=== PATIENT | male | born 1955 | race African-American/Black ===

== ENCOUNTER 2020-03-16 07:06 | Inpatient (IN) | payer MEDICAID ==
[~2020-03-16] VITALS: Ht 165.1 cm; Wt 81.6 kg
[2020-03-16] MEDS ORDERED: LEVETIRACETAM 1000MG PREMIX 100 ML IV ONE (08:15)
[2020-03-16 08:25] LABS: BASOPHILS % 0.6 % (0.0-2.0); EOSINOPHILS % 1.8 % (0.0-5.0); HEMATOCRIT. 41.7 % (42.0-52.0); HEMOGLOBIN. 13.1 g/dL (14.0-18.0); LYMPHOCYTES % 31.9 % (20.0-50.0); MEAN CORPUSCULAR HEMOGLOBIN 29.9 pg (28.0-32.0); MEAN CORPUSCULAR VOLUME 94.7 fL (80.0-94.0); MEAN PLATELET VOLUME 8.7 fl (7.4-10.4); MONOCYTES % 8.8 % (2.0-8.0); NEUTROPHILS % 56.9 % (40.0-76.0); PLATELET 212 x1000/uL (130-400); RED CELL DISTRIBUTION WIDTH 16.5 % (11.6-14.6)
[2020-03-16 08:36] LABS: CHLORIDE 101 mEq/L (98-107); INR 1.2; PROTHROMBIN TIME 12.3 sec (9.6-11.0)
[2020-03-16 08:40] LABS: ETHANOL BLOOD < 10 mg/dL
[2020-03-16 08:43] LABS: LDL CHOLESTEROL 108 mg/dL (5-100)
[2020-03-16 08:52] LABS: CLARITY URINE CLOUDY (CLEAR); COLOR URINE DARK YELLOW (YELLOW); KETONES URINE NEGATIVE (NEGATIVE); LEUKOCYTE ESTERASE URINE NEGATIVE (NEGATIVE); NITRITE URINE NEGATIVE (NEGATIVE); OCCULT BLOOD URINE 2+ (NEGATIVE); PROTEIN URINE 3+ (NEGATIVE); SPECIFIC GRAVITY URINE 1.018 (1.005-1.030)
[2020-03-16 10:10] LABS: *AMPHETAMINES SCREEN URINE NEGATIVE (NEGATIVE); *BARBITURATES SCREEN URINE NEGATIVE (NEGATIVE); *BENZODIAZEPINES SCREEN URINE PRESUMTIVE POSITIVE (NEGATIVE); *COCAINE SCREEN URINE NEGATIVE (NEGATIVE)
[2020-03-16 10:11] LABS: CANNABINOID URINE SCREEN PRESUMTIVE POSITIVE (NEGATIVE); METHADONE URINE SCREEN NEGATIVE (NEGATIVE); OPIATES URINE SCREEN NEGATIVE (NEGATIVE); PHENCYCLIDINE URINE SCREEN NEGATIVE (NEGATIVE)
[2020-03-16] MEDS ORDERED: KETOROLAC 15MG/ML VIAL IV PRN (12:15)
[2020-03-16] MEDS ORDERED: ENOXAPARIN 40MG/0.4ML SYR SUBCUT SCH (12:15)
[2020-03-16] MEDS ORDERED: ACETAMINOPHEN 325MG TABLET PO PRN ×2 (12:15)
[2020-03-16] MEDS ORDERED: IPRATROPIUM/ALBUTEROL 0.5-3(2.5)MG/3ML NEB NEB PRN (12:15)
[2020-03-16] MEDS ORDERED: NA PHOS,M-B/NA PHOS,DI-BA ENEMA 118ML PR PRN (12:15)
[2020-03-16] MEDS ORDERED: ZOLPIDEM TARTRATE 5MG TABLET PO PRN (12:15)
[2020-03-16] MEDS ORDERED: DOCUSATE SODIUM 100MG CAPSULE PO PRN (12:15)
[2020-03-16] MEDS ORDERED: MAGNESIUM/ALUMINUM HYDROXIDE/SIMETHICONE 30ML UDC PO PRN (12:15)
[2020-03-16] MEDS ORDERED: LORAZEPAM 2MG/ML CPJ IV PRN (12:15)
[2020-03-16] MEDS ORDERED: GUAIFENESIN 200MG/10ML SUGAR FREE UDC PO PRN (12:15)
[2020-03-16] MEDS ORDERED: ONDANSETRON HCL 4MG/2ML INJ IV PRN (12:15)
[2020-03-16] MEDS ORDERED: NITROGLYCERIN 0.4MG TABLET SL SL PRN (12:15)
[2020-03-16 13:03] LABS: FOLIC ACID (FOLATE) SERUM 14.5 ng/mL (>5.38)
[2020-03-16] MEDS ORDERED: DEXTROSE 50% WATER 50ML SYRINGE IV PRN (13:45)
[2020-03-16 16:00] VITALS: BP 130/105
[2020-03-16 16:22] LABS: CREATINE KINASE 314 IU/L (39-308)
[2020-03-16] MEDS: INSULIN LISPRO 100 UNITS/ML SUBCUT SCH ×2 (17:15→21:00)
[2020-03-16] MEDS: BLOOD SUGAR DIAGNOSTIC STRIP TEST SCH ×2 (17:23→21:00)
[2020-03-16] MEDS ORDERED: LISI-186 PO (17:36)
[2020-03-16] MEDS ORDERED: FURO80TA87 PO (17:36)
[2020-03-16] MEDS ORDERED: METO100T9 PO (17:36)
[2020-03-16] MEDS ORDERED: METO10TA8 PO (17:36)
[2020-03-16] MEDS ORDERED: RIVA10TA PO (17:36)
[2020-03-16] MEDS: ENOXAPARIN 100MG/ML SYR SUBCUT SCH (18:16)
[2020-03-16 18:32] VITALS: BP 137/105
[2020-03-16 20:00] VITALS: BP 120/96
[2020-03-16] MEDS ORDERED: ENOXAPARIN 30MG/0.3ML SYR SUBCUT SCH (21:00)
[2020-03-16] MEDS: LEVETIRACETAM 500MG TABLET PO SCH (22:27)
[2020-03-16] MEDS: FAMOTIDINE 20MG TABLET PO SCH (22:28)
[2020-03-16] MEDS: ASCORBIC ACID 500 MG TABLET PO SCH (22:28)
[2020-03-17] VITALS: BP 129/85
[2020-03-17 00:52] LABS: CREATINE KINASE 226 IU/L (39-308)
[2020-03-17 00:53] LABS: CREATINE KINASE MB FRACTION 8.2 ng/mL (0.5-3.6)
[2020-03-17 04:00] VITALS: BP 130/77
[2020-03-17] MEDS: INSULIN LISPRO 100 UNITS/ML SUBCUT SCH ×4 (06:16→21:00)
[2020-03-17] MEDS: BLOOD SUGAR DIAGNOSTIC STRIP TEST SCH ×4 (06:16→21:19)
[2020-03-17] MEDS: ENOXAPARIN 100MG/ML SYR SUBCUT SCH ×2 (06:40→17:42)
[2020-03-17 08:00] VITALS: BP 130/91
[2020-03-17] MEDS: ASCORBIC ACID 500 MG TABLET PO SCH ×2 (08:17→20:55)
[2020-03-17] MEDS: FAMOTIDINE 20MG TABLET PO SCH ×2 (08:17→20:55)
[2020-03-17] MEDS: ZINC SULFATE 220 MG ( 50 ) CAPSULE PO SCH (08:17)
[2020-03-17] MEDS: LEVETIRACETAM 500MG TABLET PO SCH ×2 (08:17→20:55)
[2020-03-17] MEDS: CHOLECALCIFEROL (D3) 1000 UNIT TABLET PO SCH (08:17)
[2020-03-17] MEDS: ASPIRIN 325MG EC TABLET PO SCH (08:17)
[2020-03-17 08:37] LABS: BASOPHILS % 0.5 % (0.0-2.0); EOSINOPHILS % 0.5 % (0.0-5.0); HEMATOCRIT. 37.5 % (42.0-52.0); HEMOGLOBIN. 12.3 g/dL (14.0-18.0); LYMPHOCYTES % 10.3 % (20.0-50.0); MEAN CORPUSCULAR VOLUME 91.3 fL (80.0-94.0); MEAN PLATELET VOLUME 8.6 fl (7.4-10.4); MONOCYTES % 11.2 % (2.0-8.0); NEUTROPHILS % 77.5 % (40.0-76.0); PLATELET 179 x1000/uL (130-400); RED CELL DISTRIBUTION WIDTH 16.5 % (11.6-14.6)
[2020-03-17 09:19] LABS: CHLORIDE 104 mEq/L (98-107)
[2020-03-17 09:39] LABS: PHOSPHORUS 3.2 mg/dL (2.5-4.9)
[2020-03-17 12:00] VITALS: BP 133/99
[2020-03-17 16:00] VITALS: BP 128/96
[2020-03-17 20:00] VITALS: BP 142/99
[2020-03-18 04:00] VITALS: BP_SYST 131; BP_SYST 142; BP_DIAS 105; BP_DIAS 92
[2020-03-18] MEDS: CLONIDINE 0.1MG TABLET PO PRN (05:43)
[2020-03-18] MEDS: BLOOD SUGAR DIAGNOSTIC STRIP TEST SCH ×4 (05:46→21:53)
[2020-03-18] MEDS: INSULIN LISPRO 100 UNITS/ML SUBCUT SCH ×4 (06:31→21:00)
[2020-03-18 08:00] VITALS: BP 141/96
[2020-03-18] MEDS: CHOLECALCIFEROL (D3) 1000 UNIT TABLET PO SCH (08:45)
[2020-03-18] MEDS: LEVETIRACETAM 500MG TABLET PO SCH ×2 (08:46→21:52)
[2020-03-18] MEDS: ASPIRIN 325MG EC TABLET PO SCH (08:46)
[2020-03-18] MEDS: ASCORBIC ACID 500 MG TABLET PO SCH ×2 (08:46→21:52)
[2020-03-18] MEDS: ZINC SULFATE 220 MG ( 50 ) CAPSULE PO SCH (08:46)
[2020-03-18] MEDS: ENOXAPARIN 80MG/0.8ML SYR SUBCUT SCH ×2 (08:46→21:53)
[2020-03-18] MEDS: FAMOTIDINE 20MG TABLET PO SCH ×2 (10:19→21:52)
[2020-03-18 12:00] VITALS: BP 132/90
[2020-03-18 16:00] VITALS: BP 145/97
[2020-03-18 20:00] VITALS: BP 145/96
[2020-03-19] VITALS: BP 139/117
[2020-03-19] MEDS: CLONIDINE 0.1MG TABLET PO PRN (00:23)
[2020-03-19] MEDS: BLOOD SUGAR DIAGNOSTIC STRIP TEST SCH ×2 (07:02→11:37)
[2020-03-19] MEDS: INSULIN LISPRO 100 UNITS/ML SUBCUT SCH ×2 (07:03→11:38)
[2020-03-19 08:00] VITALS: BP 118/94
[2020-03-19] MEDS: LEVETIRACETAM 500MG TABLET PO SCH (08:43)
[2020-03-19] MEDS: ENOXAPARIN 80MG/0.8ML SYR SUBCUT SCH (08:43)
[2020-03-19] MEDS: ASCORBIC ACID 500 MG TABLET PO SCH (08:43)
[2020-03-19] MEDS: ZINC SULFATE 220 MG ( 50 ) CAPSULE PO SCH (08:43)
[2020-03-19] MEDS: FAMOTIDINE 20MG TABLET PO SCH (08:43)
[2020-03-19] MEDS: CHOLECALCIFEROL (D3) 1000 UNIT TABLET PO SCH (08:43)
[2020-03-19] MEDS: ASPIRIN 325MG EC TABLET PO SCH (08:43)
[2020-03-19 12:00] VITALS: BP 141/97
[2020-03-19 14:34] VITALS: BP 141/97
== END 2020-03-19 16:05 | disposition home or self-care (01) | DRG 52 ==
LOC: ER 07:06 → 5WST 11:34 → EDBEDREQ 11:45 → EDBEDREQSVC 11:45 → ENRESERV 14:25
PROVIDERS: ADMIT Internal Medicine; ATTEND Internal Medicine
DX: G92 Toxic encephalopathy (principal); E11.9 Type 2 diabetes mellitus without complications; E44.1 Mild protein-calorie malnutrition; E66.9 Obesity, unspecified; E80.4 Gilbert syndrome; R56.9 Unspecified convulsions; E80.6 Other disorders of bilirubin metabolism; Z79.4 Long term (current) use of insulin; Z68.30 Body mass index [BMI] 30.0-30.9, adult; Z71.3 Dietary counseling and surveillance
CPT/HCPCS: 36415; 70551; 71045; 80053; 80061; 80305; 80320; 81003; 82550; 82553; 82607; 82746; 82962; 83036; 83540; 83550; 83721; 83735; 84100; 84484; 85025; 93005; 93306; 93970; 99285; J1650; J1953; G0480